=== PATIENT | female | born 2005 ===

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

== ENCOUNTER 2025-06-04 16:51 | Outpatient (REF) | payer MEDICAID, SELFPAY ==
[2025-06-04 19:32] LABS: Bacterial Vaginosis PCR POSITIVE (Negative); Candida Group PCR NOT DETECTED (Not Detect); Candida glab krusei PCR NOT DETECTED (Not Detect); Trichomonas vaginalis PCR NOT DETECTED (Not Detect)
[2025-06-04 20:22] LABS: CT PCR DETECTED (Not Detect.); NG PCR NOT DETECTED (Not Detect.)
== END 2025-06-04 16:52 | disposition home or self-care (01) ==
LOC: HO.LNP 16:51
PROVIDERS: Visit Provider Advanced Practice Midwife
DX: N76.0 Acute vaginitis (principal)
CPT/HCPCS: 81515; 87491; 87591

== ENCOUNTER 2025-08-20 18:21 | Outpatient (REF) | payer MEDICAID, SELFPAY ==
--- OUTSIDE RECORDS SUMMARY | 2025-08-20 18:25 | XMS_ITS ---
Author Organization [employer] Address [address] [place] [address] Care Team Providers Care Grip Wrapper Name Role Phone Rocio Zhu Primary Care Provider [phone] Federico Bazzi RN Unavailable [phone] Lesvia Salvador Unavailable [facility] Complex Status:Outreach In Progress (Enrolling) Start date:07/08/2025 Enrollment reason:ADT Feed Overview ADT-[facility] 07/07/25 . Please outreach for enrollment Case Team Name Relationship Phone Lesvia Salvador(Responsible Staff) [phone] Continued Care and Services Coordination
--- OUTSIDE RECORDS SUMMARY | 2025-08-20 18:25 | XMS_ITS | Clinical Summary ---
Author Organization [employer] Address [address] [facility] 7t [place] [address] Care Team Providers Care Heavy Duty Diesel Mechanic Name Role Phone Zhu Rocio RAMIREZ Primary Care Provider [phone] Federico Bazzi RN Unavailable [phone] Lesvia Salvador Unavailable Allergies Active Allergy Reactions Criticality Noted Date Comments Peanut-Containing Drug Products Itching 02/18 Medications * This document contains information received from the source organization and may not represent a complete record from that organization. ondansetron ODT (Zofran-ODT) 4 MG disintegrating tablet DISSOLVE 1 TABLET ON TONGUE EVERY 8 HOURS NEEDED FOR NAUSEA AND VOMITING 03/16/20 23 Active albuterol 108 (90 Base) MCG/ACT inhalerIndications :Mild intermittent asthma without complication Inhale 2 puffs every 6 (six) hours if needed for wheezing. 18 g 11 04/09/20 23 Active Additional Information Patient not taking.Reported on 06/04/2025 acetaminophen (Tylenol) 325 MG tablet Take 1 tablet (325 mg) by mouth every 8 (eight) hours if needed for mild pain. 21 tablet 12/20/19 24 Active emtricitabine-teno fovir DF (Truvada) 200-300 MG tablet One tablet by mouth daily 90 tablet 12/31/19 24 Active hydrOXYzine pamoate (Vistaril) 25 MG capsuleIndications :Insomnia, unspecified type 1-2 capsules as needed at bedtime for difficulty sleeping 90 capsule 1 12/10/19 25 Active Drospirenone (Slynd) 4 MG tablet Take 1 tablet by mouth Once per day. 28 tablet 11 06/04/20 25 Active Active Problems Problem Noted Date Diagnosed Date Moderate anxiety 12/10/2024 Bereavement counseling 12/10/2024 Assessment & Plan (12/11/2024 9:39 AM EST): During IBH Consult Do presenting with depressed mood, Tearful, crying spells , hopelessness, irritable mood, loss of interests/pleasure , sense of isolation/loneliness , isolating, changes in sleep difficulty falling asleep, psychomotor retardation, fatigue/loss of energy, worthlessness, inappropriate/excessive guilt , difficulty concentrating, indecisiveness and excessive worry/anxiety, difficulty controlling worry, anxiety/worry associated to restlessness and/or feeling keyed-up/On edge , easily fatigued , difficulty concentrating and/or mind going blank , irritability, and sleep disturbance difficulty falling asleep, and Fear , auditory hallucinations without commands; for a period of 18+ mo, for most or all symptoms in the context of and family issues and lack of OP services. Do reports the passing of her grandfather back in 10/2024 triggered increase of symptoms. Pt felt emotionally overwhelmed during appointment and states sxs are associated with traumatic events experienced during her childhood. Do moved from [place] five years ago and currently lives with her mother. She has strong connection with her father whom lives in . Positive support received from her boyfriend. Family is main value identified and source of strength. clinician engaged patient with active/reflective listening. Provided a safe space for patient to process her emotions. Practiced breathing exercises during session and grounding techniques to focus on the [id number]-[id number]-[id number]. Pt will start medication to treat sxs prescribed by her PCP (see PCP note). She will utilize [facility] for OP individual therapy. clinician will provide bridge services. Provided [facility] contact number and educated patient on importance of reaching out to others. 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 ([facility]) 07/24/2023 Assessment & Plan (12/11/2024 9:39 AM EST): During IBH Consult Do presenting with depressed mood, Tearful, crying spells , hopelessness, irritable mood, loss of interests/pleasure , sense of isolation/loneliness , isolating, changes in sleep difficulty falling asleep, psychomotor retardation, fatigue/loss of energy, worthlessness, inappropriate/excessive guilt , difficulty concentrating, indecisiveness and excessive worry/anxiety, difficulty controlling worry, anxiety/worry associated to restlessness and/or feeling keyed-up/On edge , easily fatigued , difficulty concentrating and/or mind going blank , irritability, and sleep disturbance difficulty falling asleep, and Fear , auditory hallucinations without commands; for a period of 18+ mo, for most or all symptoms in the context of and family issues and lack of OP services. Do reports the passing of her grandfather back in 10/2024 triggered increase of symptoms. Pt felt emotionally overwhelmed during appointment and states sxs are associated with traumatic events experienced during her childhood. Do moved [place] five years ago and currently lives with her mother. She has strong connection with her father whom lives in . Positive support received from her boyfriend. Family is main value identified and source of strength. clinician engaged patient with active/reflective listening. Provided a safe space for patient to process her emotions. Practiced breathing exercises during session and grounding techniques to focus on the [id number]-svm-uen. Pt will start medication to treat sxs prescribed by her PCP (see PCP note). She will utilize [facility] for OP individual therapy. clinician will provide bridge services. Provided [facility] contact number and educated patient on importance of reaching out to others. Assessment & Plan (07/24/2023 3:40 PM EDT): Assessment: Patient with anhedonia, depressed, sleep disturbance, fatigue, poor appetite, low self-esteem, diminished ability to concentrate, auditory hallucinations without commands, nervousness, persistent worry, restlessness, irritability, body shaking, unable to speak up when anxious. Factors contributing to her symptoms are Hx of trauma in childhood, unclear about her identity and not having someone to speak about it, relationship with mother is not the best as per patient they both have the same character. Patient will benefit from Ind. Therapy to learn skills to manage her emotions and Medication Management to improve functionality. 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 Follow up with [facility]: Not recommended for follow-up 2. Patient goal is to improve mental health 3. Behavioral Recommendations a. Ind. Therapy, referral will be submitted. b. Medication Management, will be started by PCP. c. Use of coping mechanisms as recommended. d. [facility] contact information for extra support. Dislocation of patellofemoral joint 10/09/2021 Encounters Date Type Department Care Team Description 08/06/2025 Patient Outreach [address] [address] Rocio Zhu ANP Care Coordination (CM/CHW outreach) 07/15/2025 Patient Outreach [address] [address] Rocio Zhu ANP Care Coordination (CM/CHW outreach) 07/15/2025 Patient Outreach [address] [address] Rocio Zhu ANP 07/09/2025 Patient Outreach [address] [address] Rocio Zhu ANP 07/08/2025 Patient Outreach [address] [address] Rocio Zhu ANP Care Coordination (CM/CHW outreach) 07/08/2025 Patient Outreach [address] [phone] Rocio Zhu ANP Care Coordination (CHW chart review) 07/08/2025 Patient Outreach [address] [address] Rocio Zhu ANP Care Management ([facility]- chart review) 07/08/2025 Patient Outreach [address] [address] Rocio Zhu ANP 06/05/2025 Results Follow-Up [address] [address] Melany Julien MD Chlamydia/N. Gonorrhoeae RNA, TMA, Vagina, POCT , urine manually resulted 06/04/2025 1:00 PM EDT Office Visit [address] [address] Maria A Cervantes CNM Acute vaginitis (Primary Dx); Irregular menses; Body image problem 06/04/2025 Orders Only [facility] [address] [place] [address] Maria A Cervantes CNM 06/04/2025 Travel 06/03/2025 Telephone [facility] [address] [facility] [place] [address] Maria A Cervantes CNM CHART PREP from Last 3 Months Immunizations Immunization Administration Dates Next Due DTaP 2005 DTaP, Unspecified 01/01/2010, 6,2005,07/25 HPV 9-Valent 06/27/2021,03/22/2021,01/20/2021 Hep A, Adult 04/04/2022 Hep A, ped/adol, 2 dose 01/20/2021 Hep B, Adolescent or Pediatric 2005,2004 Hep B, Unspecified 2019, 5,2005,06/29,2005 HiB, unspecified 2005,2005 Hib (PRP-T) 2005 IPV 01/01/2010, 6,2005,07/25,2005 Influenza injectable quadriv alent preservative free 01/31/2022 MMR 03/22/2021,01/20/2021 Meningococcal MCV4P [id number] 06/27/2021,01/21/20 21 Tdap 01/20/2021 Varicella 03/22/2021,01/20/2021 Family History Medical History Relation Name Comments Corneal problem Father's Brother breast cyst Mother Clarified 4, mother did not have breast cancer Relation Name Status Comments Father's Brother Mother Alive Social History Tobacco Use Types Packs/Day Years Used Date Smoking Tobacco: Never Passive Smoke Exposure: Never Smokeless Tobacco: Never Tobacco Cessation:Counseling Given: Not Answered Comments:Vapes ocassional Alcohol Use Standard Drinks/Week Comments Never 0 (1 standard drink = 0.6 oz pur e alcohol) Depression Answer Date Recorded Patient Health Questionnaire-9 Score 16 12/10/2024 Patient Health Questionnaire-9 Score 16 12/10/2024 Last PHQ-9: Questionnaire Data Not on file 0 12/10/2024 Housing Stability Answer Date Recorded What is your housing situation today? I have michelle carter 12/10/[address] you li ve. Do you have problems with any of the following? None of the above 12/10/2024 Food Insecurity Answer Date Recorded Within the past 12 months, y ou worried that your food would run out before you got money to buy more: Often true 2024 Within the past 12 months,th e food you bought just didn't last and you didn't have enough money to get more: Sometimes True 12/10/2024 Transportation Answer Date Recorded In the past 12 months, has l ack of transportation kept you from medical appts, meetings, work or from getting things needed for daily living? I am not sure 12/10/2024 Utilities Answer Date Recorded In the past 12 months, has t he electric, gas, oil or water company threatened to shut off services in your home? No 12/10/2024 Depression Answer Date Recorded Patient Health Questionnaire-2 Score 4 12/10/2024 Internet Access Answer Date Recorded Internet Access Q1 Yes 12/10/2024 Internet Access Q2 Not on file 12/10/2024 Comments No Intention Date Recorded No desire to become (finding) 0 06/04/2025 Sex and Gender Information Value Date Recorded Sex Assigned at Female 09/18/2022 10:37 AM EDT Legal Sex Female 10:37 AM EDT Gender Identity Female 09/18/2022 10:37 AM EDT Sexual Orientation Straight 09/18/2022 10 :37 AM EDT Last Filed Vital Signs Vital Sign Reading Time Taken Comments Blood Pressure 125/69 06/04/2025 1:05 PM EDT Pulse 75 06/04/2025 1:05 PM EDT Temperature 36.6 C (97.9 F) 12/10/2024 3:40 PM EST Respiratory Rate 16 06/04/2025 1:05 PM EDT Oxygen Saturation 98% 12/10/2024 3:40 PM EST Inhaled Oxygen Concentration - - Weight 59.9 kg (132 lb) 06/04/2025 1:05 PM EDT Height 165 cm (5' 4.96 ) 06/04/2025 1:05 PM EDT Body Mass Index 21.99 06/04/2025 1:05 PM EDT Plan of Treatment Health Maintenance Due Date Last Done Comments Meningococcal B Vaccine (1 of 2 - Standard) 2021 Depression Monitoring 06/09/2025 12/10/2024, 025 COVID-19 Vaccine (3 - season) 2025 06/07/2021, 05/17/2021 Influenza Vaccine (#1) 2025 01/31/2022 SDOH Screening 12/10/2025 12/10/2024 Tobacco Screening 12/10/2025 12/10/2024 Alcohol/Substance Use Screening 06/04/2026 06/04/2025 Chlamydia and Gonorrhea Screening 06/04/2026 06/04/2025, 09/16/2024, 05/15/2024, Additional history exists Disability Screening 06/04/2026 06/04/2025 Family Planning (PISQ) 06/04/2026 06/04/2025 DTaP/Tdap/Td Vaccines (7 - Td or Tdap) 01/20/2031 01/20/2021, 01/01/2010, 09/27/2006, Additional history exists Zoster Vaccines (1 of 2) 2055 RSV Patients and Patients Aged 60 years or older (1 - 1-dose 75+ series) 2080 HIB Vaccines Aged Out 2005, 04/2005, 2005 No longer eligible based on patient's age to complete this topic IPV Vaccines Completed 01/01/2010, 07/2006, 2005, Additional history exists Hepatitis B Vaccines Completed 2019, 2005, 2005, Additional history exists HPV Vaccines Completed 06/27/2021, 02/2021, 01/20/2021 Meningococcal Vaccine Completed 06/27/2021, 021 Hepatitis A Vaccines Completed 04/04/2022, 01/21/20 21 Hepatitis C Screening Completed 10/06/2024, 024 HIV Screening Completed 12/09/2024, 09/19, 05/15/2024, Additional history exists Pneumococcal Vaccine: Pediatrics (0 to 5 Years) and At-Risk Patients (6 to 49) Years Aged Out No longer eligible based on patient's age to complete this topic RSV under 20 months Aged Out No longe r eligible based on patient's age to complete this topic Rotavirus Vaccines Aged Out No longer eligible based on patient's age to complete this topic Procedures Procedure Name Priority Date/Time Associated Diagnosis Comments POCT WET MOUNT/ORACIO Routine 06/04/2025 1: 43 PM EDT Acute vaginitis POCT , URINE Routine 06/04/2025 1:30 PM EDT Irregular menses BACTERIAL VAGINOSIS PANEL Routine 06/04/2025 1:30 PM EDT CHLAMYDIA/N. GONORRHOEAE RNA, TMA, UROGENITAL Routine 06/04/2025 1:30 PM EDT Acute vaginitis HIV 1/2 ANTIGEN/ANTIBODY, FOURTH GENERATION W/RFL Routine 12/09/2024 3:20 PM EST Encntr screen for infections w sexl mode of transmiss HEPATITIS C AB W/REFL TO HCV RNA, QN, PCR Routine 10/06/2024 11:09 AM EST Encntr screen for infections w sexl mode of transmiss from Last 3 Months or Most Recently Relevant to Health Maintenance Results * POCT fern test, vaginal fluid manually resulted (06/04/2025 1:43 PM EDT) ORACIO Prep Positive Comment:pH 5.5, pos whiff, p os clue, pos wbc, neg yeast, ? non motile trich Vaginal Fluid Vaginal structure / Unknown 06/04/2025 1:43 PM EDT Maria A Cervantes CNM POINT OF CARE TEST ENTER/ EDIT ORDERABLES Final Result * (ABNORMAL) Bacterial Vaginosis (06/04/2025 1:30 PM EDT) TRICHOMONAS VAGINALIS DETECTION BY PCR NOT DETECTED Not Detect [facility] BACTERIAL VAGINOSIS DETECTION BY PCR POSITIVE(A) Negative [facility] Comment:The BV organism targ ets of the Xpert Xpress MVP test can becommensal in women; Xpert Xpress MVP positive results forbacterial vaginosis should be considered in conjunction withother clinical and patient information to determine thedisease status. Organisms that are not detected by the XpertXpress MVP test have also been reported to be associatedwith BV and aerobic vaginitis.The Xpert Xpress MVP test performance has not been evaluatedin patients under the age of 14. CLARE GROUP DETECTION BY PCR NOT DETECTED Not Detect [facility] Clare glab krusei PCR NOT DETECTED Not Detect [facility] 06/04/2025 1:30 PM EDT 06/04/2025 4:54 PM EDT Maria A Cervantes [facility] MICROBIOLOGY - GENERA L ORDERABLES Final Result [facility] [address] [place] [phone] * (ABNORMAL) Chlamydia/N. Gonorrhoeae RNA, TMA, Vagina (06/04/2025 1:30 PM EDT) CT PCR DETECTED(A) Not Detect. [facility] Comment:Detected results may be observed after successful antibiotictreatment due to target nucleic acids from residualnon-viable chlamydia. As with many diagnostic tests, resultsfrom the Xpert CT/NG assay should be interpreted inconjunction with other laboratory and clinical dataavailable to the clinician.Xpert CT/NG performance has not been evaluated in patientsless than 14 years of age. The assay should not be used forthe evaluationof suspected sexual abuse or for other medico- legalindications. Additional testing is recommended inany circumstance when false positive or false negativeresults could lead to adverse medical, social orpsychological consequences.These results must be reported by the ordering clinician orclinical facility to the [facility]as required by state law. NG PCR NOT DETECTED Not Detect. [facility] Comment:A not detected test result does not exclude the possibilityof infection because test results can be affected byimproper specimen collection, concurrent antibiotic therapy,or the number of organisms in the specimen which may bebelow the sensitivity of the test. As with many diagnostictests, results from the Xpert CT/NG assay should beinterpreted in conjunction with other laboratory andclinical data available to the clinician.Xpert CT/NG performance has not been evaluated in patientsless than 14 years of age. The assay should not be used forthe evaluationof suspected sexual abuse or for other medico-legalindications. Additional testing is recommended in anycircumstance when false positive or false negative resultscould lead to adverse medical, social or psychologicalconsequences. Swab Vaginal structure / Unknown 06/04/2025 1:30 PM EDT 06/04/2025 4:55 PM EDT Maria A [facility] MICROBIOLOGY - GENERA L ORDERABLES Final Result [facility] [address] [place] [phone] * POCT , urine manually resulted (06/04/2025 1:30 PM EDT) Preg Test, Ur Negative Negative, Indeterminate, None Detected, Invalid, Specimen unsatisfactory for evaluation, Weakly Positive, 2+ QC Media Lot # [id number] Lot# Expiration Date [id number] Urine 06/04/2025 1:30 PM EDT Maria A Cervantes [facility] POINT OF CARE TEST ENTER/ EDIT ORDERABLES Final Result * HIV-1/2 Antigen and Antibodies, Fourth Generation, with Reflexes (12/09/2024 3:20 PM EST) HIV AB/AG Nonreactive Nonreactive [facility] Comment:HIV-1 p24 Ag and/or HIV-1/HIV-2 Ab not detected.A test result that is nonreactive does not exclude thepossibility of exposure to or infection with HIV-1 and/orHIV-2. Nonreactive results in this assay for individualswith prior exposure to HIV-1 and/or HIV-2 may be due toantigen and antibody levels that are below the limit ofdetection of this assay.The AFreezenity HIV Ag/Ab Combo assay result andsupplemental assay results should be interpreted inconjunction with the patient's clinical presentation,history and other laboratory results. If the results areinconsistent with clinical evidence, additional testing issuggested to confirm the result. Blood Venous blood specimen / Unknown 12/09/2024 3:20 PM EST 12/09/2024 4:05 PM EST Maria A Cervantes [facility] BLOOD ORDERABLES Brigid l Result Performing Organization Address [facility]/ZIP Co de Phone Number [facility] [address] [place] [phone] * Hepatitis C Antibody with Reflex to HCV, RNA, Quantitative, Real-Time PCR (10/06/2024 11:09 AM EST) Hepatitis C Antibody Nonreactive Nonreactive [facility] Comment:Antibodies to HCV no t detected; does not exclude early acuteHCV infection. Blood Venous blood specimen / Unknown 10/06/2024 11:09 AM EST 10/06/2024 1:16 PM EST [facility] BLOOD ORDERABLES Brigid l Result Performing Organization Address [facility] Co de Phone Number [facility] [address] [place] [phone] from Last 3 Months or Most Recently Relevant to Health Maintenance Insurance [facility] C3 Care Teams Heavy Duty Diesel Mechanic Relationship Specialty Start Date End Date Rocio Zhu ANP [address] [place] [phone] PCP - General Family Medicine 07/13/22 Federico Bazzi, KODY [address] [place] [phone] Registered Nurse Family Medicine 07/08/25 Lesvia Salvador 07/08/25
--- OUTSIDE RECORDS SUMMARY | 2025-08-20 18:25 | XMS_ITS ---
Author Organization [employer] Address [address] [facility] 7t [place] [address] Care Team Providers Care Brake Linings Coater Name Role Phone Rocio Zhu Primary Care Provider [phone] Federico Bazzi RN Unavailable [phone] Lesvia Salvador Unavailable CM Complex Status:Outreach In Progress (Enrolling) Start date:07/08/2025 Enrollment reason:ADT Feed Overview ADT-[facility] ED 07/07/25 [place] Case Team Name Relationship Phone Federico Bazzi RN(Responsible Staff) Registered Nurse [phone] Continued Care and Services Coordination
--- OUTSIDE RECORDS SUMMARY | 2025-08-20 18:25 | XMS_ITS | Encounter Summary ---
Author Organization [employer] Address [address] [facility] 7t [place] [address] Care Team Providers Care Cable Installer Repairer Name Role Phone Rocio Zhu Primary Care Provider [phone] Federico Bazzi RN Unavailable [phone] Lesvia Salvador Unavailable Reason for Visit * Reason Onset Date Comments Appointment Request 10/27/2022 Encounter Details Date Type Department Care Team (Late st Contact Info) Description 10/27/[address] [facility] [address] [place] [address] [phone] Rocio Zhu ANP [address] [place] [address] Appointment Request Social History Tobacco Use Types Packs/Day Years Used Date Smoking Tobacco: Never Assessed Comments Unknown Sex and Gender Information Value Date Recorded Sex Assigned at Female 09/18/2022 10:37 AM EDT Legal Sex Female 10:37 AM EDT Gender Identity Female 09/18/2022 10:37 AM EDT Sexual Orientation Straight 09/18/2022 10 :37 AM EDT documented as of this encounter Miscellaneous Notes * Telephone Encounter - Cristina Lakhani - 10/27/2022 3:17 PM EST Tc from pt requesting an appt . documented in this encounter Plan of Treatment Not on file documented as of this encounter Visit Diagnoses Not on filedocumented in this encounter Care Teams Cable Installer Repairer Relationship Specialty Start Date End Date Rocio Zhu ANP [address] [place] [phone] PCP - General Family Medicine 07/13/22 Federico Bazzi RN [address] [place] [phone] Registered Nurse Family Medicine 07/08/25 Lesvia Salvador 07/08/25 documented as of this encounter
[2025-08-21 09:08] LABS: CT PCR DETECTED (Not Detect.); NG PCR NOT DETECTED (Not Detect.)
== END 2025-08-20 18:22 | disposition home or self-care (01) ==
LOC: HO.HHCLNP 18:21
PROVIDERS: Visit Provider Advanced Practice Midwife
DX: Z20.2 Contact with and (suspected) exposure to infections with a predominantly sexual mode of transmission (principal)
CPT/HCPCS: 87491; 87591

== ENCOUNTER 2025-11-05 18:44 | Outpatient (REF) | payer MEDICAID, SELFPAY ==
--- OUTSIDE RECORDS SUMMARY | 2025-11-05 14:00 | XMS_ITS | Encounter Summary ---
Author Organization [employer] Address [address] [facility] 7t [place] [address] Care Team Providers Care Relocation Commissioner Name Role Phone Rocio Zhu Primary Care Provider [phone] Federico Bazzi RN Unavailable [phone] Lesvia Salvador Unavailable Reason for Visit * Reason Comments CHW - Office Visit Encounter Details Date Type Department Care Team ([facility] st Contact Info) Description 11/05/2025 2:00 PM EST Office Visit [facility] [address] [place], [place] [phone] Maria A Cervantes CNM [address] [place], [place] [phone] Irregular menses (Primary Dx); Screening examination for venereal disease Social History Tobacco Use Types Packs/Day Years [...] Date Recorded No desire to become (finding) 1 01/06/2025 Sex and Gender Information Value Date Recorded Sex Assigned at Female 09/18/2022 10:37 AM EDT Legal Sex Female 10:37 AM EDT Gender Identity Female 09/18/2022 10:37 AM EDT Sexual Orientation Straight 09/18/2022 10 :37 AM EDT documented as of this encounter Last Filed Vital Signs Vital Sign Reading Time Taken Comments Blood Pressure 104/60 11/05/2025 2:11 PM EST Pulse 70 11/05/2025 2:11 PM EST Temperature 36.2 C (97.1 F) 11/05/2025 2:11 PM EST Respiratory Rate 14 11/05/2025 2:11 PM EST Oxygen Saturation 99% 11/05/2025 2:11 PM EST Inhaled Oxygen Concentration - - Weight 56.2 kg (123 lb 12.8 oz) 11/05/2025 2:11 PM EST Height - - Body Mass Index 20.63 06/04/2025 1:05 PM EDT documented in this encounter Progress Notes * Maria A Cervantes CNM - 11/05/2025 2:00 PM EST Subjective Patient ID: Do Dodge is a 20 y.o. female who presents for followup Treated for chlamydia 05/2025, 08/2025. She and partner were treated, abstained from sex during treatment. No new partners. No vaginal symptoms. On Slynd, happy with method. Not planning in the next year, but wonders if she can get . No toxin exposures, regular menses prior to oralcontraceptive pill. Normal TSH this year. Would like test today. Review of Systems Genitourinary: Negative for dyspareunia, dysuria, pelvic pain, vaginal bleeding, vaginal discharge and vaginal pain. Objective BP 104/60 (BP Location: Left arm, Patient Position: Sitting, BP Cuff Size: Adult) Pulse 70 Temp97.1 ??F (36.2 ??C) (Oral) Resp 14 Wt 123 lb 12.8 oz (56.2 kg) LMP 11/05/2025 SpO2 99% BMI 20.63 kg/m?? Physical Exam Constitutional: Appearance: Normal appearance. Neurological: Mental Status: She is alert. Psychiatric: Mood and Affect: Mood normal. Behavior: Behavior normal. Assessment/Plan Diagnoses and all orders for this visit: Irregular menses - POCT Urine test negative today. Reassured most people get within a year of trying. Most important for her is to avoid another chlamydia (or other) infection. Advised to let me know if/when planning to get . Would advise starting , stopping oral contraceptive pill. Reviewed toxin avoidance. Report irregular menses off oral contraceptive pill or if not after 6 months of trying. Screening examination for venereal disease - Chlamydia/N. Gonorrhoeae RNA, TMA, Vagina Self collected vaginal swab. Will contact with results. Declines PrEP/DoxyPEP. documented in this encounter Plan of Treatment Upcoming Encounters Date Type Department Care Team (Late st Contact Info) Description 11/06/2025 2:30 PM EST Office Visit [facility] [address] [place] [address] Rocio Zhu ANP [address] [place], [place] [phone] Scheduled Orders Name Type Priority Associated Diagnoses Orde r Schedule Chlamydia/N. Gonorrhoeae RNA, TMA, Vagina Microbiology Routine Screening examination for venereal disease Ordered: 11/05/2025 documented as of this encounter Procedures Procedure Name Priority Date/Time Associated Diagnosis Comments POCT , URINE Routine 11/05/2025 2:21 PM EST Irregular menses documented in this encounter Results * POCT Urine (11/05/2025 2:21 PM EST) Preg Test, Ur Negative Negative, Indeterminate, None Detected, Trace, 3+, Specimen unsatisfactory for evaluation, Weakly Positive, 1+, 2+ QC Media Lot # [id number] Lot# Expiration Date [id number] Urine 11/05/2025 2:21 PM EST Maria A ROBISON POINT OF CARE TEST ENTER/ EDIT ORDERABLES Final Result documented in this encounter Visit Diagnoses Diagnosis Irregular menses- Primary Irregular menstrual cycle Screening examination for venereal disease documented in this encounter Additional Health Concerns Assessment Noted Time PHQ-9 Depression Total Score: 16 025 4:26 PM EST documented as of this encounter Care Teams Relocation Commissioner Relationship Specialty Start Date End Date Rocio Zhu ANP [address] [place] [address] PCP - General Family Medicine 07/13/22 Federico Bazzi RN [address] [place] [phone] Registered Nurse Family Medicine 07/08/25 Lesvia Salvador 07/08/25 documented as of this encounter
--- OUTSIDE RECORDS SUMMARY | 2025-11-05 19:59 | XMS_ITS ---
Author Organization [employer] Address [address] [facility] [address] [place] [address] Care Team Providers Care Corporate Meeting Planner Name Role Phone Rocio Zhu Primary Care Provider [phone] Federico Bazzi RN Unavailable [phone] Lesvia Salvador Unavailable CM Complex Status:Outreach In Progress (Enrolling) Start date:07/08/2025 Enrollment reason:ADT Feed Overview ADT-[facility] ED 07/07/25 [place] Case Team Name Relationship Phone Federico Bazzi RN(Responsible Staff) Registered Nurse [phone] Continued Care and Services Coordination
--- OUTSIDE RECORDS SUMMARY | 2025-11-05 19:59 | XMS_ITS ---
Author Organization [employer] Address [address] [facility] [address] [place] [address] Care Team Providers Care Legal Assistant Name Role Phone Rocio Zhu Primary Care Provider [phone] Federico Bazzi RN Unavailable [phone] Lesvia Salvador Unavailable CHW Complex Status:Outreach In Progress (Enrolling) Start date:07/08/2025 Enrollment reason:ADT Feed Overview ADT-[facility] ED 07/07/25 . Please outreach for enrollment Case Team Name Relationship Phone Lesvia Salvador(Responsible Staff) [phone] Continued Care and Services Coordination
--- OUTSIDE RECORDS SUMMARY | 2025-11-05 19:59 | XMS_ITS | Encounter Summary ---
Author Organization [employer] Address [address] [facility] 7[address] [place] [address] Care Team Providers Care Woolen Suiting Shrinker Name Role Phone Rocio Zhu Primary Care Provider [phone] Federico Bazzi RN Unavailable [phone] Lesvia Salvador Unavailable Reason for Visit * Reason Onset Date Comments chart prep 11/04/2025 Encounter Details Date Type Department Care Team ([facility] st Contact Info) Description 11/04/2025 Telephone [facility] [address] [place], [place] [phone] Maria A Cervantes CNM [address] [place], [place] [phone] chart prep Social History Tobacco Use Types Packs/Day Years Used Date Smoking Tobacco: Never Passive Smoke Exposure: Never Smokeless Tobacco: Never Comments:Vapes ocassional Alcohol Use Standard Drinks/Week Comments Never 0 (1 standard drink = 0.6 oz pur e alcohol) Depression Answer Date Recorded Patient Health Questionnaire-9 Score 16 12/10/2024 Patient Health Questionnaire-9 Score 16 12/10/2024 Last PHQ-9: Questionnaire Data Not on file 0 12/10/2024 Housing Stability Answer Date Recorded What is your housing situation today? I have michelle emma 12/10/[address] you li [...] Q2 Not on file 12/10/2024 Comments No Sex and Gender Information Value Date Recorded Sex Assigned at Female 09/18/2022 10:37 AM EDT Legal Sex Female 10:37 AM EDT Gender Identity Female 09/18/2022 10:37 AM EDT Sexual Orientation Straight 09/18/2022 10 :37 AM EDT documented as of this encounter Miscellaneous Notes * Telephone Encounter - Lilia Bazzi [place] - 11/04/2025 4:18 PM EST ..Chart Prep Labs: not applicable Images: not applicable Vaccines due: Covid Due and Flu Due Referrals: Not Applicable Screenings: LMP Overdue care gaps: PHQ9 documented in this encounter Plan of Treatment Upcoming Encounters Date Type Department Care Team (Late st Contact Info) Description 11/06/2025 2:30 PM EST Office Visit [facility] [address] [place] [phone] Rocio Zhu ANP [address] [place] [phone] documented as of this encounter Visit Diagnoses Not on filedocumented in this encounter Additional Health Concerns Assessment Noted Time PHQ-9 Depression Total Score: 16 025 4:26 PM EST documented as of this encounter Care Teams Woolen Suiting Shrinker Relationship Specialty Start Date End Date Rocio Zhu ANP [address] [place] [phone] PCP - General Family Medicine 07/13/22 Federico Bazzi, RN [address] [place] [phone] Registered Nurse Family Medicine 07/08/25 Lesvia Salvador 07/08/25 documented as of this encounter
--- OUTSIDE RECORDS SUMMARY | 2025-11-05 19:59 | XMS_ITS | Clinical Summary ---
Author Organization [employer] Address [address] [facility] 7t [place] [address] Care Team Providers Care Distillery Manager Name Role Phone Zhu Rocio RAMIREZ Primary Care Provider [phone] Federico Bazzi RN Unavailable [phone] Lesvia Salvador Unavailable Allergies Active Allergy Reactions Criticality Noted Date Comments Peanut-Containing Drug Products Itching 02/18 Medications * This document contains information received from the source organization and may not represent a complete record from that organization. ondansetron ODT (Zofran-ODT) 4 MG disintegrating tablet DISSOLVE 1 TABLET ON TONGUE EVERY 8 HOURS NEEDED FOR NAUSEA AND VOMITING 023 Active albuterol 108 (90 Base) MCG/ACT inhalerIndication s:Mild intermittent asthma without complication Inhale 2 puffs every 6 (six) hours if needed for wheezing. 18 g 11 023 Active Additional Information Patient not taking.Reported on 06/04/2025 acetaminophen (Tylenol) 325 MG tablet Take 1 tablet (325 mg) by mouth every 8 (eight) hours if needed for mild pain. 21 tablet 024 Active Drospirenone (Slynd) 4 MG tablet Take 1 tablet by mouth Once per day. 28 tablet 11 025 Active emtricitabine-ten ofovir DF (Truvada) 200-300 MG tablet One tablet by mouth daily 90 tablet 024 2024 Discontinued hydrOXYzine pamoate (Vistaril) 25 MG capsuleIndication s:Insomnia, unspecified type 1-2 capsules as needed at bedtime for difficulty sleeping 90 capsule 1 025 2024 Discontinued doxycycline (Monodox) 100 MG capsule One twice a day for 7 days. Take with at least 8 ounces (large glass) of water, do not lie down for 30 minutes after 14 capsule 025 2024 Discontinued Active Problems Problem Noted Date Diagnosed Date [...] during her childhood. Do moved from the [place] five years ago and currently lives [...] and grounding techniques to focus on the bfsg-gwq-ldo. Pt will start medication to treat sxs prescribed by her PCP (see PCP note). She will utilize [facility] for OP individual therapy. clinician will provide bridge services. Provided [facility] contact number and educated patient on importance of reaching out to others. 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 Do moved from the [place] five years ago and currently lives [...] and grounding techniques to focus on the koog-hen-mfq. Pt will start medication to treat sxs prescribed by her PCP (see PCP note). She will utilize [facility] for OP individual therapy. clinician will provide bridge services. Provided [facility] contact number and educated patient on importance [...] seek treatment PLAN: 1. Follow up with [facility]: Not recommended for follow-up 2. Patient goal is to improve mental health 3. Behavioral Recommendations a. Ind. Therapy, referral will be submitted. b. Medication Management, will be started by PCP. c. Use of coping mechanisms as recommended. d. [facility] contact information for extra support. Dislocation of patellofemoral joint 10/09/2021 Encounters Date Type Department Care Team Description 11/05/2025 2:00 PM EST Office Visit [address] [address] Maria A Cervantes CNM Irregular menses (Primary Dx); Screening examination for venereal disease 11/05/[address] [address] Rocio Zhu ANP chart prep 11/05/2025 Travel 11/04/[address] [address] Maria A Cervantes CNM chart prep 10/28/2025 Patient Outreach [address] [address] Rocio Zhu ANP Pre-visit Planning (SDOH screening was completed on 12/10/2024) 09/15/2025 Patient Outreach [address] [address] Rocio Zhu ANP 08/21/2025 Orders Only [address] [address] Maria A Cervantes CNM 08/21/2025 Results Follow-Up [address] [address] Maria A Cervantes CNM Chlamydia/N. Gonorrhoeae RNA, TMA, Vagina 08/06/2025 Patient Outreach [address] [address] Rocio Zhu ANP Care Coordination (CM/CHW outreach) from Last 3 Months Immunizations Immunization Administration [...] 12.8 oz) 11/05/2025 2:11 PM EST Height 165 cm (5' 4.96 ) 06/04/2025 1: 05 PM EDT Body Mass Index 20.63 06/04/2025 1:05 PM EDT Plan of Treatment Upcoming Encounters Date Type Department Care Team (Late st Contact Info) Description 11/06/2025 2:30 PM EST Office Visit [facility] [address] [place] [address] Rocio Zhu, ANP [address] [place] [address] Health Maintenance Due Date Last Done Comments Meningococcal B Vaccine (1 of 2 - Standard) 2021 Depression Monitoring 06/09/2025 12/10/2024, 025 COVID-19 Vaccine (3 - season) 2025 06/07/2021, 05/17/2021 Influenza Vaccine (#1) 2025 01/31/2022 SDOH Screening 12/10/2025 12/10/2024 Alcohol/Substance Use Screening 06/04/2026 06/04/2025 Disability Screening 06/04/2026 06/04/2025 Chlamydia and Gonorrhea Screening 08/20/2026 08/20/2025, 06/04/2025, 09/16/2024, Additional history exists Family Planning (PISQ) 11/05/2026 11/05/2025 Tobacco Screening 11/05/2026 11/05/2025 DTaP/Tdap/Td Vaccines (7 - Td or Tdap) [...] Routine 11/05/2025 2:21 PM EST Irregular menses CHLAMYDIA/N. GONORRHOEAE RNA, TMA, UROGENITAL Routine 08/20/2025 3:30 PM EDT Encntr screen for infections w sexl mode of transmiss HIV 1/2 ANTIGEN/ANTIBODY, FOURTH GENERATION W/RFL Routine 12/09/2024 3:20 PM EST Encntr screen for infections w sexl mode of transmiss HEPATITIS C AB W/REFL TO HCV RNA, QN, PCR Routine 10/06/2024 11:09 AM EST Encntr screen for infections w sexl mode of transmiss from Last 3 Months or Most Recently Relevant to Health Maintenance Results * POCT Urine (11/05/2025 2:21 PM EST) Preg Test, Ur Negative Negative, Indeterminate, None Detected, Trace, 3+, Specimen unsatisfactory for evaluation, Weakly Positive, 1+, 2+ QC Media Lot # [id number] Lot# Expiration Date [id number] Urine 11/05/2025 2:21 PM EST Maria A Cervantes CNM POINT OF CARE TEST ENTER/ EDIT ORDERABLES Final Result * (ABNORMAL) Chlamydia/N. Gonorrhoeae RNA, TMA, Vagina (08/20/2025 3:30 PM EDT) CT PCR DETECTED(A) Not Detect. [facility] Comment:Detected results may be observed after [...] the ordering clinician orclinical facility [facility] required by state law. NG PCR NOT DETECTED Not Detect. [facility] Comment:A not detected test result does [...] or psychologicalconsequences. Swab Vaginal structure / Unknown 08/20/2025 3:30 PM EDT 08/20/2025 6:24 PM EDT Maria A Cervantes [facility] MICROBIOLOGY - GENERA L ORDERABLES Final Result [facility] [address] [place] [phone] * HIV-1/2 Antigen and Antibodies, Fourth Generation, with Reflexes (12/09/2024 3:20 PM EST) HIV AB/AG Nonreactive Nonreactive [facility] Comment:HIV-1 p24 Ag and/or HIV-1/HIV-2 Ab not detected.A test result that is nonreactive does not exclude thepossibility of exposure to or infection with HIV-1 and/orHIV-2. Nonreactive results in this assay for individualswith prior exposure to HIV-1 and/or HIV-2 may be due toantigen and antibody levels that are below the limit ofdetection of this assay.The [employer] HIV Ag/Ab Combo assay result andsupplemental assay results should be interpreted inconjunction with the patient's clinical presentation,history and other laboratory results. If the results areinconsistent with clinical evidence, additional testing issuggested to confirm the result. Blood Venous blood specimen / Unknown 12/09/2024 3:20 PM EST 12/09/2024 4:05 PM EST [facility] BLOOD ORDERABLES Brigid l Result Performing Organization Address [facility] Co de Phone Number [facility] [address] [place] [phone] * Hepatitis C Antibody with Reflex to HCV, RNA, Quantitative, Real-Time PCR (10/06/2024 11:09 AM EST) Hepatitis C Antibody Nonreactive Nonreactive [facility] Comment:Antibodies to HCV no t detected; does not exclude early acuteHCV infection. Blood Venous blood specimen / Unknown 10/06/2024 11:09 AM EST 10/06/2024 1:16 PM EST [facility] BLOOD ORDERABLES Brigid l Result Performing Organization Address [facility] Co de Phone Number [facility] [address] [place] [phone] from Last 3 Months or Most Recently Relevant to Health Maintenance Insurance [facility] C3 Care Teams Distillery Manager Relationship Specialty Start Date End Date Rocio Zhu ANP [address] [place] [phone] PCP - General Family Medicine 07/13/22 Federico Bazzi, KODY [address] [place] [phone] Registered Nurse Family Medicine 07/08/25 Lesvia Salvador 07/08/25
--- OUTSIDE RECORDS SUMMARY | 2025-11-05 19:59 | XMS_ITS | Clinical Summary ---
Author Organization [facility] Address [address] [place] [address] Phone Care Team Providers Care Folded Cloth Taper Name Role Phone Physician, Pcp Unknown Primary Care Provider Elke vailable Allergies No known active allergies Encounters Date Type Department Care Team Description 09/10/2025 8:56 PM EDT - 09/10/2025 10:56 PM EDT Emergency [facility] Emergency [address] [place] [address] Pain of right lower extremity (Primary Dx); Slipping, tripping and stumbling without falling due to stepping from one level to another, initial encounter; Urine test negative Discharge Disposition: Home or Self Care from Last 3 Months Medical History Medical History Date Comments No known health problems Social History Tobacco Use Types Packs/Day Years Used Date Smoking Tobacco: Never Smokeless Tobacco: Never Tobacco Cessation:Counseling Given: Not Answered Comments Unknown Sex and Gender Information Value Date Recorded Sex Assigned at Not on file Legal Sex Female 8:38 PM EDT Gender Identity Not on file Sexual Orientation Not on file Last Filed Vital Signs Vital Sign Reading Time Taken Comments Blood Pressure 120/60 09/10/2025 8:41 PM EDT Pulse 100 09/10/2025 8:41 PM EDT Temperature 36.3 C (97.3 F) 09/10/2025 8:41 PM EDT Respiratory Rate 16 09/10/2025 8:41 PM EDT Oxygen Saturation 99% 09/10/2025 8:41 PM EDT Inhaled Oxygen Concentration - - Weight 59 kg (130 lb) 09/10/2025 8:41 PM EDT Height 162.6 cm (5' 4 ) 09/10/2025 8:41 PM EDT Body Mass Index 22.31 09/10/2025 8:41 PM EDT Plan of Treatment Health Maintenance Due Date Last Done Comments Meningococcal B Vaccine (1 of 2 - Standard) 2021 Depression Screening 11/19/2024 COVID-19 Vaccine (1 - season) 2025 Influenza Vaccine (#1) 2025 01/31/2022 Annual Well Child Visit (3-21 years old) 09/10/2025 04/09/2023 Social Influencers of Health Screening 09/10/2025 Gonorrhea/Chlamydia Screening 08/20/2026 08/20/2025 DTaP,Tdap,and Td Vaccines (7 - Td or Tdap) 01/20/2031 01/20/2021, 01/01/2010, 09/27/2006, Additional history exists RSV Immunization Adult Patients (1 - 1-dose 75+ series) 2080 HIB Vaccines Aged Out 2005, 04/2005, 2005 No longer eligible based on patient's age to complete this topic IPV Vaccines Completed 01/01/2010, 07/2006, 2005, Additional history exists Hepatitis B Vaccines Completed 2019, 2005, 2005, Additional history exists MMR Vaccines Completed 03/22/2021, 01/20/2021 Varicella Vaccines Completed 03/22/2021, 01/20/2021 HPV Vaccines Completed 06/27/2021, 02/2021, 01/20/2021 Meningococcal ACWY Vaccine Completed 06/27/2021, Hepatitis A Vaccines Completed 04/04/2022, 01/21/20 Hepatitis C Screening Completed 10/06/2024 HIV Screening Completed 12/09/2024 Pneumococcal Vaccine: Pediatrics (0 to 5 Years) and At-Risk Patients (6 to 49 Years) Aged Out No longer eligible based on patient's age to complete this topic RSV Immunization Patients Under 20 months Aged Out No longer eligible based on patient's age to complete this topic Procedures Procedure Name Priority Date/Time Associated Diagnosis Comments XR KNEE 4+ VIEWS RIGHT STAT 09/10/2025 9:47 PM EDT XR TIBIA FIBULA 2 VIEWS RIGHT STAT 09/10/2025 9:47 PM EDT XR ANKLE 3+ VIEWS RIGHT STAT 09/10/2025 9:47 PM EDT POC , URINE DIAGNOSTIC STAT 09/10/2025 9:37 PM EDT from Last 3 Months Results * XR Ankle 3+ Views Right (09/10/2025 9:47 PM EDT) Anatomical Region Laterality Modality Lower Extremities, Ankle Right Radiogr aphic Imaging 09/11/2025 8:29 AM EDT Impressions 09/11/2025 8:29 AM EDT Normal radiographic appearance of the ankle. -------- FINAL REPORT -------- Dictated By: Clint Ortiz Dictated Date: 09/11/2025 08:29 ET Assigned Physician: Clint Ortiz Reviewed and Electronically Signed By: Clint Ortiz Signed Date: 09/11/2025 08:29 ET Workstation ID: [id number] Transcribed By: Self Edit Transcribed Date: 09/11/2025 08:29 ET Narrative 09/11/2025 8:29 AM EDT PROCEDURE: Radiographs of the right ankle. HISTORY: pain. COMPARISON: None. FINDINGS: 3 views of the right ankle. No fracture, malalignment, or focal bony lesion. Symmetric mortise. Intact talar dome. No significant degenerative change. No evidence of an ankle joint effusion. Procedure Note Clint Ortiz MD - 09/11/2025 PROCEDURE: Radiographs of the right ankle. HISTORY: pain. COMPARISON: None. FINDINGS: 3 views of the right ankle. No fracture, malalignment, or focal bony lesion. Symmetric mortise.Intact talar dome. No significant degenerative change. No evidence of anankle joint effusion. IMPRESSION: Normal radiographic appearance of the ankle. -------- FINAL REPORT -------- Dictated By: Clint Ortiz Dictated Date: 09/11/2025 08:29 ET Assigned Physician: Clint Ortiz Reviewed and Electronically Signed By: Clint Ortiz Signed Date: 09/11/2025 08:29 ET Workstation ID: [id number] Transcribed By: Self Edit Transcribed Date: 09/11/2025 08:29 ET Latricia TALLEY IMG XR PROCEDURES Final Result * XR Tibia Fibula 2 Views Right (09/10/2025 9:47 PM EDT) Anatomical Region Laterality Modality Lower Extremities, Lower Leg Right Rad iographic Imaging 09/11/2025 8:29 AM EDT Impressions 09/11/2025 8:29 AM EDT Normal exam. -------- FINAL REPORT -------- Dictated By: Clint Ortiz Dictated Date: 09/11/2025 08:29 ET Assigned Physician: Clint Ortiz Reviewed and Electronically Signed By: Clint Ortiz Signed Date: 09/11/2025 08:29 ET Workstation ID: [id number] Transcribed By: Self Edit Transcribed Date: 09/11/2025 08:29 ET Narrative 09/11/2025 8:29 AM EDT PROCEDURE: Multiple views of the right tibia and fibula. HISTORY: pain. COMPARISON: None. FINDINGS: 4 views of the right tibia and fibula. Bony mineralization is normal. No fracture or malalignment. No erosion or significant degenerative change. Soft tissues are normal. Procedure Note Clint Ortiz MD - 09/11/2025 PROCEDURE: Multiple views of the right tibia and fibula. HISTORY: pain. COMPARISON: None. FINDINGS: 4 views of the right tibia and fibula. Bony mineralization is normal. No fracture or malalignment. No erosionor significant degenerative change. Soft tissues are normal. IMPRESSION: Normal exam. -------- FINAL REPORT -------- Dictated By: Clint Ortzi Dictated Date: 09/11/2025 08:29 ET Assigned Physician: Clint Ortiz Reviewed and Electronically Signed By: Clint Ortiz Signed Date: 09/11/2025 08:29 ET Workstation ID: [id number] Transcribed By: Self Edit Transcribed Date: 09/11/2025 08:29 ET Latricia TALLEY IMG XR PROCEDURES Final Result * XR Knee 4+ Views Right (09/10/2025 9:47 PM EDT) Anatomical Region Laterality Modality Lower Extremities, Knee Right [facility] 09/11/2025 8:28 AM EDT Impressions 09/11/2025 8:28 AM EDT Normal exam. -------- FINAL REPORT -------- Dictated By: Clint Ortiz Dictated Date: 09/11/2025 08:28 ET Assigned Physician: Clint Ortiz Reviewed and Electronically Signed By: Clint Ortiz Signed Date: 09/11/2025 08:28 ET Workstation ID: [id number] Transcribed By: Self Edit Transcribed Date: 09/11/2025 08:28 ET Narrative 09/11/2025 8:28 AM EDT PROCEDURE: Radiographs of the right knee. HISTORY: pain. COMPARISON: None. FINDINGS: 4 views of the right knee. Bony mineralization is normal. No fracture or malalignment. No erosion or significant degenerative change. Soft tissues are normal. Procedure Note Clint Ortiz MD - 09/11/2025 PROCEDURE: Radiographs of the right knee. HISTORY: pain. COMPARISON: None. FINDINGS: 4 views of the right knee. Bony mineralization is normal. No fracture or malalignment. No erosionor significant degenerative change. Soft tissues are normal. IMPRESSION: Normal exam. -------- FINAL REPORT -------- Dictated By: Clint Ortiz Dictated Date: 09/11/2025 08:28 ET Assigned Physician: Clint Ortiz Reviewed and Electronically Signed By: Clint Ortiz Signed Date: 09/11/2025 08:28 ET Workstation ID: [id number] Transcribed By: Self Edit Transcribed Date: 09/11/2025 08:28 ET Latricia TALLEY IMG XR PROCEDURES Final Result * POC , urine manually resulted (09/10/2025 9:37 PM EDT) HCG, Ur POC Negative Negative POC hCG Int QC Pass? Yes Yes Urine Urine specimen obtained by clean catch procedure / Unknown 09/10/2025 9:37 PM EDT Latricia TALLEY POINT OF CARE TEST ENTER /EDIT ORDERABLES Final Result from Last 3 Months Insurance MEDICAID - [place] Care Teams Folded Cloth Taper Relationship Specialty Start Date End Date Physician, Pcp Unknown PCP - General 09/10/25
--- OUTSIDE RECORDS SUMMARY | 2025-11-05 19:59 | XMS_ITS | Encounter Summary ---
Author Organization [employer] Address [address] [facility] [address] [place] [address] Care Team Providers Care Informatica Mdm Architect Name Role Phone Rocio Zhu Primary Care Provider [phone] Federico Bazzi RN Unavailable [phone] Lesvia Salvador Unavailable Reason for Visit * Reason Onset Date Comments Appointment Request 10/27/2022 Encounter Details Date Type Department Care Team (Late st Contact Info) Description 10/27/2022 Telephone [facility] [address] [place] [address] [phone] Rocio Zhu ANP [address] [place] [address] [phone] Appointment Request Social History Tobacco Use Types [...] Description 11/06/2025 2:30 PM EST Office Visit [facility] [address] [place] [address] [phone] Rocio Zhu ANP [address] [place] [phone] documented as of this encounter Visit Diagnoses Not on filedocumented in this encounter Care Teams Informatica Mdm Architect Relationship Specialty Start Date End Date Rocio Zhu ANP [address] [place] [address] PCP - General Family Medicine 07/13/22 Federico Bazzi RN [address] [place] [phone] Registered Nurse Family Medicine 07/08/25 Lesvia Salvador 07/08/25 documented as of this encounter
--- OUTSIDE RECORDS SUMMARY | 2025-11-05 19:59 | XMS_ITS | Encounter Summary ---
Author Organization [employer] Address [address] [facility] [address] [place] [address] Care Team Providers Care Yeast Stacker Name Role Phone Rocio Zhu Primary Care Provider [phone] Federico Bazzi RN Unavailable [phone] Lesvia Salvador Unavailable Reason for Visit * Reason Onset Date Comments chart prep 11/05/2025 Encounter Details Date Type Department Care Team ([facility] st Contact Info) Description 11/05/2025 Telephone [facility] [address] [place], [place] [phone] Rocio Zhu ANP [address] [place] [address] chart prep Social History Tobacco Use Types [...] Telephone Encounter - Lilia Bazzi [place] - 11/05/2025 3:00 PM EST ..Chart Prep Labs: not applicable Images: not applicable Vaccines due: Covid Due and Flu Due Referrals: Not Applicable Screenings: LMP Overdue care gaps: SDOH, PHQ9, and GAD7 documented in this encounter Plan of Treatment Upcoming Encounters Date Type Department Care Team (Late st Contact Info) Description 11/06/2025 2:30 PM EST Office Visit [facility] [address] [place] [phone] Rocio Zhu ANP [address] [place] [address] documented as of this encounter Visit Diagnoses Not on filedocumented in this encounter Additional Health Concerns Assessment Noted Time PHQ-9 Depression Total Score: 16 025 4:26 PM EST documented as of this encounter Care Teams Yeast Stacker Relationship Specialty Start Date End Date Rocio Zhu ANP [address] [place] [phone] PCP - General Family Medicine 07/13/22 Federico Bazzi RN [address] [place] [phone] Registered Nurse Family Medicine 07/08/25 Lesvia Salvador 07/08/25 documented as of this encounter
--- OUTSIDE RECORDS SUMMARY | 2025-11-05 19:59 | XMS_ITS | Encounter Summary ---
Author Organization [employer] Address [address] [facility] [address] [place] [address] Care Team Providers Care Agency Trainer Name Role Phone Audra Rocio RAMIREZ Primary Care Provider [phone] Federico Bazzi RN Unavailable Lesvia Salvador Unavailable Encounter Details Date Type Department Care Team (Latest Contact Info) Description 11/05/2025 Travel Social History Tobacco Use Types Packs/Day Years [...] AM EDT documented as of this encounter Plan of Treatment Upcoming Encounters Date Type Department Care Team (Late st Contact Info) Description 11/06/2025 2:30 PM EST Office Visit [facility]INE [address] [place] [address] Rocio Zhu ANP [address] [place] [address] documented as of this encounter Visit Diagnoses Not on filedocumented in this encounter Additional Health Concerns Assessment Noted Time PHQ-9 Depression Total Score: 16 025 4:26 PM EST documented as of this encounter Care Teams Agency Trainer Relationship Specialty Start Date End Date Rocio Zhu ANP [address] [place] [address] PCP - General Family Medicine 07/13/22 Federico Bazzi RN [address] [place] [phone] Registered Nurse Family Medicine 07/08/25 Lesvia Salvador 07/08/25 documented as of this encounter
[2025-11-05 21:25] LABS: CT PCR NOT DETECTED (Not Detect.); NG PCR NOT DETECTED (Not Detect.)
== END 2025-11-05 18:45 | disposition home or self-care (01) ==
LOC: HO.HHCLNP 18:44
PROVIDERS: Visit Provider Advanced Practice Midwife
DX: Z20.2 Contact with and (suspected) exposure to infections with a predominantly sexual mode of transmission (principal)
CPT/HCPCS: 87491; 87591